=== PATIENT | male | born 2000 | race Caucasian/White ===

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

== ENCOUNTER 2021-02-14 21:27 | Emergency (ER) | payer OTHER ==
[2021-02-14 21:37] VITALS: BP 132/79
[2021-02-14] MEDS ORDERED: CLINDAMYCIN HC300 MG PO (21:48)
== END 2021-02-14 22:10 | disposition home or self-care (01) ==
LOC: ED 21:27
DX: K04.7 Periapical abscess without sinus (principal); Z88.8 Allergy status to other drugs, medicaments and biological substances; Z79.2 Long term (current) use of antibiotics; Z79.899 Other long term (current) drug therapy

== ENCOUNTER 2021-03-21 13:13 | Emergency (ER) | payer OTHER ==
[~2021-03-21] VITALS: Ht 182.8 cm; Wt 83.9 kg
[~2021-03-21 13:13] MED LIST changes: +CLINDAMYCIN HC300 MG PO
[2021-03-21 14:08] VITALS: BP 126/74
[2021-03-21] MEDS ORDERED: NAPROXEN250 MG PO (14:32)
[2021-03-21] MEDS ORDERED: TYLENOL325 M1 PO (14:32)
== END 2021-03-21 14:40 | disposition home or self-care (01) ==
LOC: ED 13:13
DX: M25.511 Pain in right shoulder (principal); F41.9 Anxiety disorder, unspecified; G43.909 Migraine, unspecified, not intractable, without status migrainosus; Z88.8 Allergy status to other drugs, medicaments and biological substances; Z79.2 Long term (current) use of antibiotics; Z79.899 Other long term (current) drug therapy; X50.0XXA Overexertion from strenuous movement or load, initial encounter; Y93.89 Activity, other specified; Y92.89 Other specified places as the place of occurrence of the external cause; Y99.8 Other external cause status

== ENCOUNTER 2022-08-10 08:56 | Emergency (ER) | payer OTHER ==
[~2022-08-10] VITALS: Ht 180.3 cm; Wt 97.5 kg
[~2022-08-10 08:56] MED LIST changes: +NAPROXEN250 MG PO; +TYLENOL325 M1 PO
[2022-08-10 09:08] VITALS: BP 130/70
[2022-08-10] MEDS ORDERED: AMOXICILLIN875 MG PO (09:22)
== END 2022-08-10 09:58 | disposition home or self-care (01) ==
LOC: ED 08:56
DX: K08.89 Other specified disorders of teeth and supporting structures (principal); Z88.8 Allergy status to other drugs, medicaments and biological substances

== ENCOUNTER 2022-12-10 19:24 | Emergency (ER) | payer OTHER ==
[~2022-12-10] VITALS: Ht 182.8 cm; Wt 97.5 kg
[~2022-12-10 19:24] MED LIST changes: +AMOXICILLIN875 MG PO
[2022-12-10 19:28] VITALS: BP 160/90
[2022-12-10] MEDS ORDERED: CLEOCIN HCL300 MG PO (19:46)
[2022-12-10] MEDS ORDERED: Motrin,Rufen800 MG PO (19:46)
== END 2022-12-10 20:03 | disposition home or self-care (01) ==
LOC: ED 19:24
DX: K08.89 Other specified disorders of teeth and supporting structures (principal); Z88.8 Allergy status to other drugs, medicaments and biological substances

== ENCOUNTER 2023-09-03 13:27 | Emergency (ER) | payer OTHER ==
[~2023-09-03] VITALS: Ht 180.3 cm; Wt 99.8 kg
[~2023-09-03 13:27] MED LIST changes: +CLEOCIN HCL300 MG PO
[2023-09-03 13:59] VITALS: BP 156/90
[2023-09-03 14:21] LABS: BASO % 0.5 % (0.0-1.0); EOS # 0.1 10*3/uL (0.0-0.4); EOS % 1.4 % (1.0-4.0); HEMATOCRIT 48.5 % (42.0-52.0); LYMPH # 1.3 10*3/uL (1.3-4.4); LYMPH % 15.9 % (27.0-41.0); MEAN CELL VOLUME 88.8 fl (80.0-94.0); MEAN CORPUSCULAR HGB 29.9 pg (27.0-31.0); MEAN CORPUSCULAR HGB CONC 33.6 g/dl (33.0-37.0); MEAN PLATELET VOLUME 11.1 fl (9.6-12.3); MONO # 0.6 10*3/uL (0.1-1.0); MONO % 7.8 % (3.0-9.0); PLATELET COUNT AUTOMATED 239 10*3/uL (130-400); RED BLOOD COUNT 5.46 10*6/uL (4.50-5.90); RED CELL DISTRI WIDTH 13.1 % (0-14.5); WHITE BLOOD COUNT 8.1 10*3/uL (4.8-10.8)
[2023-09-03 14:42] LABS: ALKALINE PHOSPHATASE 92 U/L (46-116); BUN 11 mg/dl (9-23); CHLORIDE 104 mmol/L (98-107); POTASSIUM 3.9 mmol/L (3.4-5.1); SGPT/ALT 23 U/L (5-49); TOTAL PROTEIN 6.6 gm/dL (6.0-8.0)
== END 2023-09-03 15:32 | disposition home or self-care (01) ==
LOC: ED 13:27
PROVIDERS: Physician Assistant Medical
DX: R07.89 Other chest pain (principal); K08.89 Other specified disorders of teeth and supporting structures; R11.2 Nausea with vomiting, unspecified; F90.9 Attention-deficit hyperactivity disorder, unspecified type; F31.9 Bipolar disorder, unspecified; F41.9 Anxiety disorder, unspecified; Z88.8 Allergy status to other drugs, medicaments and biological substances

== ENCOUNTER 2023-11-20 11:01 | Emergency (ER) | payer OTHER ==
[~2023-11-20] VITALS: Ht 180.3 cm; Wt 102.1 kg
[2023-11-20 11:18] VITALS: BP 136/75
[2023-11-20] MEDS ORDERED: ADDERALL 30 MG30 MG PO (11:18)
[2023-11-20 11:27] LABS: BASO % 0.5 % (0.0-1.0); EOS # 0.1 10*3/uL (0.0-0.4); EOS % 1.2 % (1.0-4.0); HEMATOCRIT 47.5 % (42.0-52.0); LYMPH # 1.5 10*3/uL (1.3-4.4); LYMPH % 18.1 % (27.0-41.0); MEAN CELL VOLUME 89.5 fl (80.0-94.0); MEAN CORPUSCULAR HGB 29.6 pg (27.0-31.0); MEAN CORPUSCULAR HGB CONC 33.1 g/dl (33.0-37.0); MEAN PLATELET VOLUME 11.2 fl (9.6-12.3); MONO # 0.6 10*3/uL (0.1-1.0); MONO % 7.4 % (3.0-9.0); NEUT % 72.6 % (47.0-73.0); PLATELET COUNT AUTOMATED 240 10*3/uL (130-400); RED BLOOD COUNT 5.31 10*6/uL (4.50-5.90); RED CELL DISTRI WIDTH 12.8 % (0-14.5); WHITE BLOOD COUNT 8.3 10*3/uL (4.8-10.8)
[2023-11-20 11:38] LABS: ACT PARTIAL THROMBO TIME 29.9 SECONDS (20.0-32.1)
[2023-11-20 11:48] LABS: ALKALINE PHOSPHATASE 95 U/L (46-116); BUN 15 mg/dl (9-23); CHLORIDE 105 mmol/L (98-107); POTASSIUM 4.2 mmol/L (3.4-5.1); SGPT/ALT 17 U/L (5-49); TOTAL PROTEIN 7.1 gm/dL (6.0-8.0)
== END 2023-11-20 13:53 | disposition home or self-care (01) ==
LOC: ED 11:01
PROVIDERS: Physician Assistant Medical
DX: R07.89 Other chest pain (principal); F41.9 Anxiety disorder, unspecified; Z88.8 Allergy status to other drugs, medicaments and biological substances; I10 Essential (primary) hypertension; F90.9 Attention-deficit hyperactivity disorder, unspecified type; F31.9 Bipolar disorder, unspecified; F17.210 Nicotine dependence, cigarettes, uncomplicated

== ENCOUNTER 2024-03-18 17:09 | Emergency (ER) | payer OTHER ==
[~2024-03-18] VITALS: Ht 180.3 cm; Wt 99.8 kg
[~2024-03-18 17:09] MED LIST changes: +ADDERALL 30 MG30 MG PO; +CLEOCIN HCL150 MG PO; +LEVOFLOXACIN750 M2 PO; +PROPRANOLOL HY120 MG PO
[2024-03-18 18:27] VITALS: BP 137/93
[2024-03-18 19:09] LABS: BASO % 0.3 % (0.0-1.0); EOS # 0.2 10*3/uL (0.0-0.4); EOS % 1.8 % (1.0-4.0); HEMATOCRIT 46.6 % (42.0-52.0); LYMPH # 1.2 10*3/uL (1.3-4.4); LYMPH % 11.8 % (27.0-41.0); MEAN CELL VOLUME 89.1 fl (80.0-94.0); MEAN CORPUSCULAR HGB 29.3 pg (27.0-31.0); MEAN CORPUSCULAR HGB CONC 32.8 g/dl (33.0-37.0); MEAN PLATELET VOLUME 11.2 fl (9.6-12.3); MONO # 0.8 10*3/uL (0.1-1.0); MONO % 7.6 % (3.0-9.0); NEUT # 7.9 10*3/uL (2.3-7.9); NEUT % 78.2 % (47.0-73.0); PLATELET COUNT AUTOMATED 235 10*3/uL (130-400); RED BLOOD COUNT 5.23 10*6/uL (4.50-5.90); RED CELL DISTRI WIDTH 13.1 % (0-14.5); WHITE BLOOD COUNT 10.1 10*3/uL (4.8-10.8)
[2024-03-18 19:28] LABS: ALKALINE PHOSPHATASE 99 U/L (46-116); BUN 14 mg/dl (9-23); CHLORIDE 103 mmol/L (98-107); POTASSIUM 3.8 mmol/L (3.4-5.1); SGPT/ALT 26 U/L (5-49); TOTAL PROTEIN 6.7 gm/dL (6.0-8.0)
[2024-03-18] MEDS ORDERED: ACETAMINOPHEN 325 MG TAB PO ONE (20:55)
== END 2024-03-19 01:09 | disposition home or self-care (01) ==
LOC: ED 17:09
PROVIDERS: Internal Medicine
DX: R19.7 Diarrhea, unspecified (principal); Z88.8 Allergy status to other drugs, medicaments and biological substances; Z79.2 Long term (current) use of antibiotics; Z79.899 Other long term (current) drug therapy

== ENCOUNTER 2025-04-21 13:08 | Emergency (ER) | payer OTHER ==
[~2025-04-21] VITALS: Wt 99.8 kg
[2025-04-21 13:23] VITALS: BP 138/51
[2025-04-21] MEDS ORDERED: SODIUM CHLORIDE 0.9% 1,000 ML IV ONE (13:30)
[2025-04-21] MEDS ORDERED: Ondansetron Hydrochloride 4 MG/2 ML VIAL IV ONE (13:30)
[2025-04-21 13:40] LABS: BASO % 0.2 % (0.0-1.0); EOS # 0.2 10*3/uL (0.0-0.4); EOS % 1.4 % (1.0-4.0); HEMATOCRIT 48.2 % (42.0-52.0); MEAN CELL VOLUME 86.8 fl (80.0-94.0); MEAN CORPUSCULAR HGB 29.5 pg (27.0-31.0); MEAN PLATELET VOLUME 10.8 fl (9.6-12.3); NEUT # 11.6 10*3/uL (2.3-7.9); NEUT % 83.6 % (47.0-73.0); PLATELET COUNT AUTOMATED 250 10*3/uL (130-400); RED BLOOD COUNT 5.55 10*6/uL (4.50-5.90); RED CELL DISTRI WIDTH 13.2 % (0-14.5); WHITE BLOOD COUNT 13.8 10*3/uL (4.8-10.8)
[2025-04-21 14:07] LABS: ALKALINE PHOSPHATASE 98 U/L (46-116); BUN 18 mg/dl (9-23); CHLORIDE 102 mmol/L (98-107); LIPASE 37 U/L (12-53); POTASSIUM 3.7 mmol/L (3.4-5.1); SGPT/ALT 31 U/L (5-49)
[2025-04-21] MEDS ORDERED: VANCOMYCIN HCL 125 MG CAPSULE PO ONE (14:20)
[2025-04-21 14:28] LABS: BILIRUBIN Negative (Negative); BLOOD Negative (Negative); CLARITY Clear (Clear); COLOR Yellow (Yellow); GLUCOSE Negative (Negative); KETONE Negative (Negative); LEUKO ESTERASE Negative (Negative); NITRITE Negative (Negative); SPECIFIC GRAVITY 1.025 (1.001-1.030)
[2025-04-21 14:38] LABS: PH 8.5 (4.5-8.0)
[2025-04-21 14:39] LABS: BACTERIA TRACE; RBC 0-2 rbc/hpf (0-2); WBC 0-2 wbc/hpf (0-5)
[2025-04-21] MEDS ORDERED: VANCOCIN125 M1 PO (16:57)
[2025-04-21] MEDS ORDERED: Ondansetron4 MG PO (16:57)
[2025-04-21] MEDS ORDERED: DICYCLOMINE HYD10 MG PO (16:57)
[2025-04-21] MEDS ORDERED: Dicyclomine Hydrochloride 10 MG CAP PO ONE (17:00)
== END 2025-04-21 17:20 | disposition home or self-care (01) ==
LOC: ED 13:08
PROVIDERS: Internal Medicine
DX: K52.9 Noninfective gastroenteritis and colitis, unspecified (principal); F31.9 Bipolar disorder, unspecified; F41.9 Anxiety disorder, unspecified; Z79.899 Other long term (current) drug therapy; Z88.8 Allergy status to other drugs, medicaments and biological substances

== ENCOUNTER 2025-05-30 03:21 | Emergency (ER) | payer OTHER ==
[~2025-05-30] VITALS: Ht 182.8 cm; Wt 108.9 kg
[~2025-05-30 03:21] MED LIST changes: +DICYCLOMINE HYD10 MG PO; +Ondansetron4 MG PO; +VANCOCIN125 M1 PO
[2025-05-30 03:30] VITALS: BP 133/90
[2025-05-30] MEDS ORDERED: Ondansetron Hydrochloride 4 MG/2 ML VIAL IV ONE (03:45)
[2025-05-30 03:57] LABS: BASO # 0.1 10*3/uL (0.0-0.1); BASO % 0.7 % (0.0-1.0); EOS # 0.1 10*3/uL (0.0-0.4); EOS % 1.3 % (1.0-4.0); MEAN CELL VOLUME 87.6 fl (80.0-94.0); MEAN CORPUSCULAR HGB 29.3 pg (27.0-31.0); MEAN PLATELET VOLUME 10.9 fl (9.6-12.3); MONO # 0.6 10*3/uL (0.1-1.0); MONO % 7.3 % (3.0-9.0); NEUT # 4.8 10*3/uL (2.3-7.9); NEUT % 63.6 % (47.0-73.0); NUCLEATED RED BLOOD CELL 0.0 % (0.0-0.0); NUCLEATED RED BLOOD CELL 0.0 10*3/uL (0.0-0.0); PLATELET COUNT AUTOMATED 282 10*3/uL (130-400); RED CELL DISTRI WIDTH 13.2 % (0-14.5)
[2025-05-30 04:19] LABS: BUN 10 mg/dl (9-23); SGPT/ALT 49 U/L (5-49)
[2025-05-30] MEDS ORDERED: DERMABOND 1 EA APPL T ONE (08:55)
[2025-05-30] MEDS ORDERED: CEPHALEXIN500 M1 PO (09:19)
[2025-05-30] MEDS ORDERED: Tdap Vaccine 0.5 ML SYR (Adult Vaccine) IM ONE (09:35)
== END 2025-05-30 10:10 | disposition home or self-care (01) ==
LOC: ED 03:21
PROVIDERS: Emergency Medicine
DX: S01.112A Laceration without foreign body of left eyelid and periocular area, initial encounter (principal); Z88.8 Allergy status to other drugs, medicaments and biological substances; Z79.899 Other long term (current) drug therapy; W17.89XA Other fall from one level to another, initial encounter; Y93.89 Activity, other specified; Y92.098 Other place in other non-institutional residence as the place of occurrence of the external cause; Y99.8 Other external cause status

== ENCOUNTER 2025-07-09 20:56 | Emergency (ER) | payer SELFPAY ==
[~2025-07-09] VITALS: Ht 180.3 cm; Wt 99.8 kg
[2025-07-09 21:11] VITALS: BP 142/90
[2025-07-09] MEDS ORDERED: SODIUM CHLORIDE 0.9% 1,000 ML IV ONE (21:30)
[2025-07-09 21:56] LABS: BASO # 0.0 10*3/uL (0.0-0.1); BASO % 0.4 % (0.0-1.0); EOS # 0.2 10*3/uL (0.0-0.4); EOS % 2.2 % (1.0-4.0); MEAN CELL VOLUME 89.2 fl (80.0-94.0); MEAN CORPUSCULAR HGB 29.3 pg (27.0-31.0); MEAN PLATELET VOLUME 11.0 fl (9.6-12.3); MONO # 0.8 10*3/uL (0.1-1.0); MONO % 8.4 % (3.0-9.0); NEUT # 5.6 10*3/uL (2.3-7.9); NEUT % 62.3 % (47.0-73.0); NUCLEATED RED BLOOD CELL 0.0 % (0.0-0.0); NUCLEATED RED BLOOD CELL 0.0 10*3/uL (0.0-0.0); PLATELET COUNT AUTOMATED 254 10*3/uL (130-400); RED CELL DISTRI WIDTH 13.2 % (0-14.5)
[2025-07-09 22:10] LABS: BILIRUBIN Negative (Negative); BLOOD Negative (Negative); CLARITY Clear (Clear); COLOR Yellow (Yellow); KETONE Negative (Negative); LEUKO ESTERASE Negative (Negative); NITRITE Negative (Negative); PH 5.5 (4.5-8.0); SPECIFIC GRAVITY <= 1.005 (1.001-1.030); UROBILINOGEN 0.2 E.U./dl (0.0-1.0)
[2025-07-09 22:15] LABS: BUN 12 mg/dl (9-23); SGPT/ALT 38 U/L (5-49)
[2025-07-09] MEDS ORDERED: POTASSIUM CHLORIDE 20 MEQ TAB PO ONE (22:25)
[2025-07-09 22:30] LABS: WBC 0-2 wbc/hpf (0-5)
[2025-07-09] MEDS ORDERED: NAPROSYN500 MG PO (22:46)
[2025-07-09] MEDS ORDERED: CYCLOBENZAPRINE10 MG PO (22:46)
== END 2025-07-09 23:20 | disposition home or self-care (01) ==
LOC: ED 20:56
PROVIDERS: Nurse Practitioner Family
DX: F10.129 Alcohol abuse with intoxication, unspecified (principal); E87.6 Hypokalemia; M54.50 Low back pain, unspecified; F41.0 Panic disorder [episodic paroxysmal anxiety]; Z88.8 Allergy status to other drugs, medicaments and biological substances; Z79.899 Other long term (current) drug therapy; Y90.9 Presence of alcohol in blood, level not specified

== ENCOUNTER 2025-11-02 18:36 | Inpatient (IN) | payer SELFPAY ==
[~2025-11-02] VITALS: Ht 180.3 cm; Wt 118.8 kg
[2025-11-02 08:00] VITALS: BP 144/99
[~2025-11-02 18:36] MED LIST changes: +CYCLOBENZAPRINE10 MG PO
[2025-11-02 18:49] VITALS: BP 176/106
[2025-11-02 19:47] LABS: BASO # 0.1 10*3/uL (0.0-0.1); BASO % 0.6 % (0.0-1.0); EOS # 0.3 10*3/uL (0.0-0.4); EOS % 3.0 % (1.0-4.0); MEAN CELL VOLUME 88.6 fl (80.0-94.0); MEAN CORPUSCULAR HGB 28.8 pg (27.0-31.0); MEAN PLATELET VOLUME 11.5 fl (9.6-12.3); MONO # 0.9 10*3/uL (0.1-1.0); MONO % 9.8 % (3.0-9.0); NEUT # 5.1 10*3/uL (2.3-7.9); NEUT % 59.0 % (47.0-73.0); NUCLEATED RED BLOOD CELL 0.0 % (0.0-0.0); NUCLEATED RED BLOOD CELL 0.0 10*3/uL (0.0-0.0); PLATELET COUNT AUTOMATED 275 10*3/uL (130-400); RED CELL DISTRI WIDTH 12.7 % (0-14.5)
[2025-11-02 20:15] LABS: BUN 12 mg/dl (9-23)
[2025-11-02 21:58] LABS: BILIRUBIN Negative (Negative); BLOOD Negative (Negative); CLARITY Clear (Clear); COLOR Yellow (Yellow); KETONE Negative (Negative); LEUKO ESTERASE Negative (Negative); NITRITE Negative (Negative); PH 7.0 (4.5-8.0); SPECIFIC GRAVITY 1.010 (1.001-1.030); UROBILINOGEN 0.2 E.U./dl (0.0-1.0)
[2025-11-02 22:05] LABS: URINE AMPHETAMINES Negative (1000ng/ml); URINE BARBITURATES Negative (200ng/ml); URINE BENZODIAZEPINES Negative (200ng/ml); URINE CANNABINOIDS (THC) Negative (50ng/ml); URINE COCAINE Negative (300ng/ml); URINE METHADONE Negative (300ng/ml); URINE OPIATES Negative (300ng/ml); URINE PHENCYCLIDINE Negative (25ng/ml)
[2025-11-02 22:19] LABS: WBC 0-2 wbc/hpf (0-5)
[2025-11-03 04:29] VITALS: BP 113/63
[2025-11-03] MEDS ORDERED: Ondansetron Hydrochloride 4 MG/2 ML VIAL IV PRN (04:35)
[2025-11-03] MEDS ORDERED: Acetaminophen/Hydrocodone 5 MG/325 MG TABLET PO PRN (04:35)
[2025-11-03] MEDS ORDERED: IOHEXOL 350 MG/ML 100 ML VIAL IV ONE ×2 (04:45→05:15)
[2025-11-03] MEDS ORDERED: SODIUM CHLORIDE 0.9% 100 ML BAG IV ONE (04:45)
[2025-11-03] MEDS ORDERED: SODIUM CHLORIDE 0.9% 100 ML IV ONE (05:15)
[2025-11-03] MEDS ORDERED: ASPIRIN, CHEWABLE 81 MG TAB PO ONE ×2 (06:25→13:40)
[2025-11-03] MEDS ORDERED: HEPARIN SODIUM 250 ML IV SCH (07:05)
[2025-11-03 08:00] VITALS: BP 139/91
[2025-11-03 08:12] LABS: BASO # 0.0 10*3/uL (0.0-0.1); BASO % 0.5 % (0.0-1.0); EOS # 0.2 10*3/uL (0.0-0.4); EOS % 2.6 % (1.0-4.0); MEAN CELL VOLUME 89.0 fl (80.0-94.0); MEAN CORPUSCULAR HGB 29.5 pg (27.0-31.0); MEAN PLATELET VOLUME 11.3 fl (9.6-12.3); MONO # 0.7 10*3/uL (0.1-1.0); MONO % 8.1 % (3.0-9.0); NEUT # 5.2 10*3/uL (2.3-7.9); NEUT % 61.4 % (47.0-73.0); NUCLEATED RED BLOOD CELL 0.0 % (0.0-0.0); NUCLEATED RED BLOOD CELL 0.0 10*3/uL (0.0-0.0); PLATELET COUNT AUTOMATED 256 10*3/uL (130-400); RED CELL DISTRI WIDTH 12.7 % (0-14.5)
[2025-11-03 08:36] LABS: BUN 8 mg/dl (9-23); LDL CHOLESTEROL 95 mg/dL (9-159); SGPT/ALT 23 U/L (5-49)
[2025-11-03] MEDS ORDERED: LORazepam 2 MG/ML VIAL IV ONE (09:35)
[2025-11-03 10:24] LABS: URINE AMPHETAMINES Negative (1000ng/ml); URINE BARBITURATES Negative (200ng/ml); URINE BENZODIAZEPINES Negative (200ng/ml); URINE CANNABINOIDS (THC) Negative (50ng/ml); URINE COCAINE Negative (300ng/ml); URINE METHADONE Negative (300ng/ml); URINE OPIATES Negative (300ng/ml); URINE PHENCYCLIDINE Negative (25ng/ml)
[2025-11-03 12:00] VITALS: BP 123/79
[2025-11-03] MEDS ORDERED: TICAGRELOR 90 MG TABLET PO ONE (13:40)
[2025-11-03 16:00] VITALS: BP 136/87
== END 2025-11-03 18:49 | disposition short-term general hospital (02) | DRG 69 ==
LOC: ED 18:36 → EDHOLD 11-03 03:59 → 5E 11-03 03:59 → EDHOLD 11-03 03:59 → 5E 11-03 07:30
PROVIDERS: Student in an Organized Health Care Education/Training Program; ADMIT Student in an Organized Health Care Education/Training Program; ATTEND Student in an Organized Health Care Education/Training Program
DX: G45.9 Transient cerebral ischemic attack, unspecified (principal); I16.1 Hypertensive emergency; I10 Essential (primary) hypertension; G43.909 Migraine, unspecified, not intractable, without status migrainosus; F90.9 Attention-deficit hyperactivity disorder, unspecified type; R07.89 Other chest pain; F41.9 Anxiety disorder, unspecified; F17.210 Nicotine dependence, cigarettes, uncomplicated; Z88.8 Allergy status to other drugs, medicaments and biological substances; Z91.09 Other allergy status, other than to drugs and biological substances; Z82.49 Family history of ischemic heart disease and other diseases of the circulatory system; Z79.899 Other long term (current) drug therapy; Z79.01 Long term (current) use of anticoagulants; Z79.2 Long term (current) use of antibiotics